=== PATIENT | female | born 1995 | race Caucasian/White ===

== ENCOUNTER 2018-10-20 00:42 | Emergency (ER) | payer OTHER, MEDICAID ==
[~2018-10-20] VITALS: Ht 162.6 cm; Wt 68.0 kg
[2018-10-20 01:25] LABS: ABSOLUTE EOSINOPHILS 0.2 thou/uL (0.0-0.7); ABSOLUTE LYMPHOCYTES 2.2 thou/uL (0.8-5.3); ABSOLUTE MONOCYTES 0.4 thou/uL (0.0-1.2); ABSOLUTE NEUTROPHILS 3.9 thou/uL (1.6-8.1); BASOPHILS 0.5 %; EOSINOPHILS 3.5 %; HEMATOCRIT 37.5 % (37.0-47.0); HEMOGLOBIN 12.3 gm/dL (12.0-15.0); MCH 27.4 pg (26.0-34.0); MCHC 32.8 g/dL (28.0-37.0); MCV 83.4 fL (80.0-100.0); MONOCYTES 5.9 %; MPV 11.9 fl. (7.2-11.1); NUCLEATED RBCS 0 /100WBC; PLATELET COUNT* 154 thou/uL (150-400); POLYS 58.1 %; RBC 4.49 mil/uL (4.20-5.00); RDW-CV 15.7 % (10.5-14.5); WBC 6.7 thou/uL (4.0-11.0)
[2018-10-20 01:35] LABS: ALBUMIN 4.1 g/dL (3.4-5.0); CALCIUM 9.3 mg/dL (8.5-10.1); CREATININE 0.8 mg/dL (0.6-1.3); POTASSIUM 3.9 mmol/L (3.5-5.1); TOTAL BILIRUBIN 0.3 mg/dL (<0.1-1.0); TOTAL PROTEIN 8.1 g/dL (6.4-8.2)
[2018-10-20 02:05] VITALS: BP 115/72
== END 2018-10-20 02:06 | disposition home or self-care (01) ==
LOC: M.ERS 00:42
PROVIDERS: Personal Emergency Response Attendant
DX: E86.0 Dehydration (principal); F17.200 Nicotine dependence, unspecified, uncomplicated; Z98.890 Other specified postprocedural states

== ENCOUNTER 2019-04-12 20:59 | Emergency (ER) | payer OTHER, MEDICAID ==
[~2019-04-12] VITALS: Ht 167.6 cm; Wt 59.0 kg
[2019-04-12] MEDS ORDERED: DIFLUCAN150 MG PO (21:46)
[2019-04-12] MEDS ORDERED: KEFLEX500 M1 PO (21:46)
[2019-04-12] MEDS ORDERED: BACTRIM DS TAB1 EACH PO (21:46)
[2019-04-12] MEDS ORDERED: NORCO 5-325 TA1 EAC1 PO (21:59)
[2019-04-12 22:18] VITALS: BP 103/66
== END 2019-04-12 22:00 | disposition home or self-care (01) ==
LOC: M.ERS 20:59
DX: L08.89 Other specified local infections of the skin and subcutaneous tissue (principal); F17.200 Nicotine dependence, unspecified, uncomplicated; J45.909 Unspecified asthma, uncomplicated; Z98.890 Other specified postprocedural states; Z86.2 Personal history of diseases of the blood and blood-forming organs and certain disorders involving the immune mechanism